=== PATIENT | male | born 1965 | race Caucasian/White ===

== ENCOUNTER → 2019-04-28 16:38 | Outpatient (CLI) | payer OTHER, SELFPAY ==
--- NOTE | ~2019-04-28 | MR_ITS ---
EXAMINATION: MR shoulder LT wo con DATE: 04/28/2019 17:45 INDICATION: Left shoulder pain. TECHNIQUE: Magnetic resonance imaging (MRI) of the left shoulder was performed without intravenous co ntrast. Sequences included axial PD-weighted FS FSE, coronal oblique PD-weighted FS FSE and T2-weight ed FS FSE, and sagittal oblique T2-weighted FS FSE and T1-weighted FSE. COMPARISON: Left shoulder MRI 10/24/2008, radiographs 04/14/2019 FINDINGS: Coracoacromial arch: The acromion undersurface is curved in morphology (type II). There is severe acromioclavicular joint osteoarthritis including inferiorly directed osteophytes. There is mild subacromial/subdeltoid bursit is. Rotator cuff: There is a full-thickness tear of supraspinatus tendon measuring 3 mm anterior to posterior by 2.0 cm proximal to distal. There is mild infraspinatus tendinopathy. Teres minor tendon is normal. There is moderate subscapularis tendinopathy. There is no asymmetric fatty atrophy of the rotator cuff muscle bellies. Biceps tendon and glenoid labrum: Biceps tendon is in bicipital groove. There is a partial tear of biceps tendon. There is a tear of gonzalez perior labrum from 11:00 to 12:00 (SLAP tear). Fluid: There is a small glenohumeral joint effusion. Bones/cartilage: Humeral head cartilage is normal. Glenoid cartilage is normal. IMPRESSION: 1. Full-thickness rotator cuff tear. 2. SLAP tear. 3. Partial tear of biceps tendon. 4. Severe acromioclavicular joint osteoarthritis. 5. Mild subacromial/subdeltoid bursitis and small glenohumeral joint effusion. Reviewed, dictated and finalized at location A. TOR IN CHARGE
== END ==
PROVIDERS: Visit Provider Orthopaedic Surgery
DX: S43.432A Superior glenoid labrum lesion of left shoulder, initial encounter (principal); X58.XXXA Exposure to other specified factors, initial encounter; M19.012 Primary osteoarthritis, left shoulder; M75.52 Bursitis of left shoulder
CPT/HCPCS: 73221

== ENCOUNTER 2020-11-10 14:33 | Emergency (ER) | payer OTHER, SELFPAY ==
--- NOTE | ~2020-11-10 | XR_ITS ---
XR shoulder RT min 2V DATE: 11/10/2020 15:01 INDICATION: Chronic right shoulder pain. No new injury. TECHNIQUE: 4 views COMPARISON: None FINDINGS: No fracture or dislocation, periosteal reaction or bone destruction or abnormal soft tissue calcification. There is diffuse idiopathic skeletal hyperostosis. IMPRESSION: Diffuse idiopathic skeletal hyperostosis Reviewed, dictated and finalized at location A.
--- NOTE | 2020-11-10 14:42 | ED.UPPEXIN ---
HPI - Extremity Injury (Upper) General Chief Complaint: Extremity Problem,Nontraumatic Stated Complaint: rt shoulder pain Time Seen by Provider: 11/10/20 14:42 Source: patient and RN notes reviewed History of Present Illness HPI narrative: Patient is a 55-year-old male who presents the urgent care with complaints of chronic right shoulder pain. Patient states he has spoke to his provider about the chronic pain and was told he likely has arthritis . Patient states that over the last week it is gotten worse especially with any type of movement or lifting. Patient has been taking ibuprofen for the pain. Denies of any injury or fall. No other acute complaints. No acute distress noted. Patient aware of the plan of care. Some parts of this dictation were generated by voice recognition software and may contain typographical and/or grammatical inaccuracies. Related Data Home Medications Medication Instructions Recorded Confirmed aspirin 81 mg tablet,delayed 81 mg PO DAILY 03/04/19 11/10/20 release sildenafil 100 mg tablet 100 mg PO DAILY PRN 03/04/19 11/10/20 multivitamin 1 tablet PO DAILY 04/15/19 11/10/20 Allergies Allergy/AdvReac Type Severity Reaction Status Date / Time No Known Allergies Allergy Verified 11/10/20 14:50 Review of Systems Review of Systems: CONSTITUTIONAL: Denies fever, chills, or sweats. EYES: Denies visual changes, redness, or discharge. ENT: Denies rhinorrhea, congestion, sore throat, or otalgia. CARDIOVASCULAR: Denies chest pain, palpitations, or edema. RESPIRATORY: Denies cough or dyspnea. GASTROINTESTINAL: Denies abdominal pain, nausea, vomiting, or diarrhea. GENITOURINARY: Denies dysuria or hematuria. SKIN: Denies rash or itching. MUSCULOSKELETAL: Reports of right shoulder pain NEUROLOGIC: Denies headache, numbness, or weakness. All other systems reviewed are negative, except as documented in HPI. [facility] Past Medical History Medical History (Updated 11/10/20 @ 15:28 by ROSARIO Phillips) Dizziness Headache Vertigo Vision abnormalities Family History Family History Father Diabetes mellitus Grandparent Diabetes mellitus Mother Hypertension Family history of malignant neoplasm of brain Sibling Hypertension Other Heart disease Social History Social History Smoking status: Never smoker Alcohol intake: current Alcohol use details: Occasional Comments At the time of my signature, I reviewed and agree with the nursing past medical, surgical, social, and family history. There is no relevant family history pertinent to the patient complaint. Exam Narrative: GENERAL: This is a well-nourished, well-developed patient, in no apparent distress. HEAD: normocephalic, atraumatic. EYES: PERRL. Sclera clear/white. Vision is grossly intact. EARS: External ears normal NOSE: External nose normal with no obvious nasal discharge, nares without redness, no rhinorrhea. THROAT: Mucous membranes moist NECK: Neck supple CARDIOVASCULAR: Regular rate and rhythm without murmurs, gallops, or rubs. RESPIRATORY: Clear to auscultation. Breath sounds equal bilaterally. No wheezes, rales, or rhonchi. SKIN: warm, intact with no suspicious lesions or rash, good texture and turgor. NEURO: awake, alert, and oriented to person, place and time. There were no obvious focal neurologic abnormalities. EXTREMITIES: Mild lateral right shoulder tenderness with palpation. Range of motion exacerbates pain otherwise within normal limits. Positive strong right radial pulse with capillary refill less than 2 seconds. No obvious deformity to the right shoulder Course Vital Signs Vital signs: Vital Signs Temperature 96.8 F L 11/10/20 14:53 Pulse Rate 80 11/10/20 14:53 Respiratory Rate 16 11/10/20 14:53 Blood Pressure 144/94 H 11/10/20 14:53 Pulse Oximetry 100 11/10/20 14:53
[2020-11-10 14:53] VITALS: BP 144/94; PULSE 80; RESP 16; TEMP 36; O2SAT 100
== END 2020-11-10 15:33 | disposition home or self-care (01) ==
PROVIDERS: Emergency Provider Nurse Practitioner Family; PCP Family Medicine
DX: M48.10 Ankylosing hyperostosis [Forestier], site unspecified (principal)
CPT/HCPCS: 73030; 99213; G0463

== ENCOUNTER → 2021-03-19 07:59 | Outpatient (CLI) | payer OTHER, SELFPAY ==
--- NOTE | ~2021-03-19 | MR_ITS ---
EXAMINATION: MR shoulder RT wo con DATE: 03/19/2021 08:57 INDICATION: Right shoulder pain. TECHNIQUE: Magnetic resonance imaging (MRI) of the right shoulder was performed without intravenous c ontrast. Sequences included axial PD-weighted FS FSE, coronal oblique PD-weighted FS FSE and T2-weigh yoselin FS FSE, and sagittal oblique T2-weighted FS FSE and T1-weighted FSE. COMPARISON: Right shoulder radiographs 11/10/2020 FINDINGS: Coracoacromial arch: The acromion undersurface is curved in morphology with anterior hook (type III). There is severe acro mioclavicular joint osteoarthritis. There is moderate subacromial/subdeltoid bursitis. Rotator cuff: There is severe supraspinatus tendinopathy. There is a bursal sided partial-thickness tear of anterio r supraspinatus tendon measuring 9 mm anterior to posterior by 8 mm proximal to distal by 70% tendon thickness. There is a partial tear of the myotendinous junction of supraspinatus with 1.3 x 0.9 x 3.1 cm fluid collection. There is mild infraspinatus tendinopathy. Teres minor tendon is normal. There i s subscapularis tendinopathy with interstitial tear. There is mild fatty atrophy of subscapularis mus magdiel belly. Biceps tendon and glenoid labrum: Biceps tendon is in bicipital groove. Intra-articular biceps tendon is intact. There is degeneration of the glenoid labrum without well-defined tear. Fluid: There is no glenohumeral joint effusion. Bones/cartilage: There is cartilage surface irregularity of glenoid and humeral head. IMPRESSION: 1. Bursal-sided partial-thickness tear of supraspinatus tendon. Partial tear of supraspinatus myotend inous junction. 2. Interstitial tear of subscapularis tendon. 3. Mild glenohumeral joint chondrosis. 4. Severe acromioclavicular joint osteoarthritis. 5. Moderate subacromial/subdeltoid bursitis. Reviewed, dictated and finalized at location A. DDED CASE MANAGER IMPRESSION: 1. Bursal-sided partial-thickness tear of supraspinatus tendon. Partial tear of supraspinatus myotendinous junction. 2. Interstitial tear of subscapularis tendon. 3. Mild glenohumeral joint chondrosis. 4. Severe acromioclavicular joint osteoarthritis. 5. Moderate subacromial/subdeltoid bursitis.
== END ==
PROVIDERS: PCP Family Medicine; Visit Provider Orthopaedic Surgery
DX: M19.011 Primary osteoarthritis, right shoulder (principal); M75.51 Bursitis of right shoulder
CPT/HCPCS: 73221

== ENCOUNTER 2021-05-10 11:17 | Outpatient (CLI) | payer OTHER, SELFPAY ==
--- NOTE | 2021-05-10 14:48 | ECG_ITS ---
Measurements Intervals [place] Rate: 78 P: 62 IN: 203 QRS: 50 QRSD: 104 T: 44 QT: 377 QTc: 429 Interpretive Statements SINUS RHYTHM POOR R-WAVE PROGRESSION OTHERWISE UNREMARKABLE ECG NO PREVIOUS ECG AVAILABLE FOR COMPARISON Electronically Signed On 05-10-2021 16:21:32 CDT by Jackson Ferguson M.D.
== END 2021-05-10 11:18 | disposition home or self-care (01) ==
PROVIDERS: PCP Family Medicine; Visit Provider Orthopaedic Surgery
DX: E11.65 Type 2 diabetes mellitus with hyperglycemia (principal)
CPT/HCPCS: 93005

== ENCOUNTER 2021-05-15 00:11 | Day surgery (SDC) | payer OTHER, SELFPAY ==
[2021-05-06 11:43] VITALS: BMI 27.9
--- NOTE | 2021-05-06 11:51 | PC.NURSE ---
Report to the Outpatient Waiting Room, entrance under the green pavilion located off [facility], at time 11:30 on date 05/15/21. OR Time: 1:30. - You and your visitor will be asked a series of questions to screen for COVID 19 for your protection. - A mask is required within the hospital. One visitor will be allowed to accompany the patient into the hospital. Patients visitor will be instructed to remain with patient at all times or leave the building. We will allow the visitor to come back to the postoperative area when patient is ready. Preoperative COVID Testing Requirements: TO BRING COPY OF CARD No COVID Test needed if: (proof is required; if not received patient will have Rapid Test prior to entry) - Patient has received COVID Vaccine at least 14 days prior to procedure date or - Patient has positive COVID test result within last 90 days of surgery date. COVID Test needed if above criteria is not met Patients may have clear liquids (water, carbonated beverages, clear teas, apple juice) until 3 hours prior to surgery (10:30) with a maximum of 20 ounces. - No food from midnight until time of surgery Take the following medications with a SIP of water the morning of surgery: NONE Medications to discontinue per physician: VITAMINS/SUPPLEMENTS Date to take last dose: 05/11/21 STOP ASPIRIN AND DICLOFENAC PER DR. FELIX Please no make-up, nail lao, hairspray, perfume, deodorant, or body powder the day of surgery. No jewelry (including any body piercings) or valuables the day of surgery, leave them at home. Please take a shower or bath the night before, or the morning of, surgery with an antibacterial soap. Wear comfortable, loose fitting clothing. - Jewelry must be removed prior to entering the operating room. Rings and piercings that are not removed may be cut off. - The hospital will not accept responsibility for valuables. - Please leave all valuables, including medications, at home the day of surgery. If you are going home after surgery, a licensed milk delivery driver must drive you home. - NO public transportation without another adult. - We recommend that an adult stay with you for 24 hours following discharge. - We also recommend that you do not drive, make important decision, drink alcoholic beverages, or take any drugs that were not prescribed by your health care provider for at least 24 hours after your discharge time. Follow any additional instructions given to you from your surgeon. Telephone instructions given to JOSEFINA GRADY and asked if any additional questions and then verbalized understanding. Patient advised to call surgeon office or pre surgery nurse liaison [phone] if any additional questions.
--- NOTE | 2021-05-14 09:23 | WPDANESEPPF ---
Anes - Initial Pre Proc Eval Procedure: Operation Date: 05/15/21 13:30 Proposed Procedures p Right Rotator Cuff Repair with Distal Clavicle Excision - Reginald Claudio MD Date/Time: 05/14/21 09:23 Surgeon: Reginald Claudio MD Pre Op Diagnosis: Rt Rot Cuff Tear Patient Data Age: 56 Gender: M Height: 1.78 m Weight: 88.45 kg Allergies Allergy/AdvReac Type Severity Reaction Status Date / Time No Known Allergies Allergy Verified 05/15/21 11:48 Home Medications Medication Instructions Recorded Confirmed Type aspirin 81 mg tablet,delayed 81 mg PO DAILY 03/04/19 05/15/21 History release sildenafil 100 mg tablet 100 mg PO DAILY PRN 03/04/19 05/15/21 History multivitamin 1 tablet PO DAILY 04/15/19 05/15/21 History lisinopril 5 mg tablet See Rx Instructions .ROUTE 05/23/20 05/15/21 Rx .COMPLEX #90 tablet empagliflozin 10 mg tablet See Rx Instructions .ROUTE 08/22/20 05/15/21 Rx .COMPLEX #90 tablet pen needle, diabetic 32 gauge x See Rx Instructions .ROUTE 08/24/20 03/25/21 Rx 1/5 .COMPLEX #100 syringe metformin 1,000 mg tablet See Rx Instructions .ROUTE 09/18/20 05/15/21 Rx .COMPLEX #180 tablet blood sugar diagnostic #200 each 10/04/20 03/25/21 Rx simvastatin 10 mg tablet See Rx Instructions .ROUTE 11/05/20 05/15/21 Rx .COMPLEX #90 tablet diclofenac sodium 75 mg 75 mg PO BID #180 tablet 12/31/20 05/15/21 Rx tablet,delayed release liraglutide 0.6 mg/0.1 mL (18 mg/3 See Rx Instructions .ROUTE 02/05/21 05/15/21 Rx mL) subcutaneous pen injector .COMPLEX #9 ml Patient hx anesthesia problems: none Family hx anesthesia problems: none Results Review: All pre-operative results and documents have been reviewed as part of the pre-operative evaluation. [facility] Past Medical History Medical History DISH (diffuse idiopathic skeletal hyperostosis) Dizziness Headache Hyperlipidemia Hypertension Type 2 diabetes mellitus with hyperglycemia Vertigo Vision abnormalities Family History Family History Father Diabetes mellitus Grandparent Diabetes mellitus Mother Hypertension Family history of malignant neoplasm of brain Sibling Hypertension Other Heart disease Social History Social History Alcohol intake: current Alcohol use details: 2/MONTH Substance use: never Substance use type: does not use Living arrangements: with family Gender identity (if verbalized by the patient): Male Spiritual care concerns: No Anes - Eval Final PreProcedure Day of Procedure 05/14/21 09:23 Patient weight: overweight Heart: regular rate and rhythm Lungs: clear to auscultation and normal air movement Airway: Mallampati scale class II Neurological: alert and oriented Last oral intake: >/= 8 hours ASA classification: III Emergent: no Anesthetic plan: proceed Anesthesia type and monitoring: general ETT and standard monitoring Results Review: All pre-operative results and documents have been reviewed as part of the pre-operative evaluation. Informed Consent: The patient's anesthetic plan and its attendant risks and benefits were discussed with the patient/family/POA. Questions were solicited and answers provided to the satisfaction of the patient/family/POA.
--- NOTE | 2021-05-14 09:24 | WPDANESPNB ---
Anes - Peripheral Nerve Block Date/Time: 05/14/21 09:24 I have discussed with the patient/family/POA the placement of a peripheral nerve block for post-operative pain management, including associated risks, benefits, complications, and side effects. Alternative methods of post-operative analgesia were detailed. Questions were solicited and answers provided to the satisfaction of the patient/family/POA. Time-Out: A pre-procedural Time-Out was completed immediately before starting the procedure and confirmed: Patient Identification, Site, Procedure, Patient Position and the Availability of Requisite Equipment. Clinical Indications: Acute post-operative pain management requested by the operative surgeon. Nerve Block Insertion Note Anes-nerve block: interscalene right Patient position: supine Skin prep: chlorhexidine Needle: 22 gauge, stimulating, insulated echogenic needle. Needle length: 50 mm Technique: ultrasound Injectate: bupivacaine 0.5% with epi 5 mcg/ml (30cc- no epi) Observations: tolerated well Complications: none Procedure start time:: 1407 Procedure end time:: 1411
[2021-05-15] VITALS (7 sets, daily range): BP systolic 124–142; BP diastolic 63–74; PULSE 72–85; RESP 12–16; TEMP 36.1–36.4; O2SAT 97–100
--- NOTE | 2021-05-15 07:35 | WPDHPUPDATE1 ---
History and Physical Update Update Date/Time: 05/15/21 07:35 History and Physical has been reviewed, including an updated exam of the patient. There are NO changes in the patient's condition. Risks, benefits, and alternatives have been discussed and questions answered. Patient agrees to proceed with procedure.
--- NOTE | 2021-05-15 10:21 | PM.IMHP ---
H&P: HPI History of Present Illness Date/Time: 05/15/21 10:21 Pt presents with Right shoulder pain that has been present for >1year. NKI. Pt states his pain is located diffusely, throughout the shoulder, and radiates into the deltoid/bicep. He notes clicking/popping, with ROM. ROM is good but painful. He also notes occasional numbness in the right hand but this is not typical. He saw his PCP 10/2020 and was ordered Diclofenac tablets and also a Medrol Dose Pack. Pt states the steroid completely resolved his pain but he was not able to continue steroid treatment (per PCP) d/t having Diabetes. No previous injuries/surgeries to the RUE. MRI completed 03/19/21. Pt is here to discuss results and poc. Dominant hand: right Current symptoms: Reports catching, stiffness, weakness and radiation Location: anterior, posterior, medial and superior Character: constant Onset: >1 year Exacerbated by: lifting, rotational activities, prolonged activity, reaching/overhead motion and lying on affected side Previous treatments: Anti-inflammatory meds: right (Diclofenac), Ice: right and Other: right (Medrol) Improved by treatment/surgery: yes (Medrol dose pack) Chief Complaint: RIGHT SHOULDER PAIN Review of Systems Review of Systems: All systems reviewed & are unremarkable except as noted in HPI and below Eyes: Eyes: Reports no additional eye complaints ENT: Reports system reviewed and no additional complaints, except as documented Cardiovascular: Cardiovascular: Reports no additional cardiovascular complaints Respiratory: Respiratory: Reports no additional respiratory complaints Gastrointestinal: Gastrointestinal: Reports no additional gastrointestinal complaints Genitourinary: Genitourinary: Reports no additional male genitourinary complaints Neurologic: Reports system reviewed and no additional complaints, except as documented [facility] Past Medical History Medical History DISH (diffuse idiopathic skeletal hyperostosis) Dizziness Headache Hyperlipidemia Hypertension Type 2 diabetes mellitus with hyperglycemia Vertigo Vision abnormalities Family History Family History Father Diabetes mellitus Grandparent Diabetes mellitus Mother Hypertension Family history of malignant neoplasm of brain Sibling Hypertension Other Heart disease Social History Social History Alcohol intake: current Alcohol use details: 2/MONTH Substance use: never Substance use type: does not use Living arrangements: with family Gender identity (if verbalized by the patient): Male Spiritual care concerns: No Meds Home Medications and Allergies Home Medications Medication Instructions Recorded Confirmed Type aspirin 81 mg tablet,delayed 81 mg PO DAILY 03/04/19 05/06/21 History release sildenafil 100 mg tablet 100 mg PO DAILY PRN 03/04/19 05/06/21 History multivitamin 1 tablet PO DAILY 04/15/19 05/06/21 History lisinopril 5 mg tablet See Rx Instructions .ROUTE 05/23/20 05/06/21 Rx .COMPLEX #90 tablet empagliflozin 10 mg tablet See Rx Instructions .ROUTE 08/22/20 05/06/21 Rx .COMPLEX #90 tablet pen needle, diabetic 32 gauge x See Rx Instructions .ROUTE 08/24/20 03/25/21 Rx 1/5 .COMPLEX #100 syringe metformin 1,000 mg tablet See Rx Instructions .ROUTE 09/18/20 05/06/21 Rx .COMPLEX #180 tablet blood sugar diagnostic #200 each 10/04/20 03/25/21 Rx simvastatin 10 mg tablet See Rx Instructions .ROUTE 11/05/20 05/06/21 Rx .COMPLEX #90 tablet diclofenac sodium 75 mg 75 mg PO BID #180 tablet 12/31/20 05/06/21 Rx tablet,delayed release liraglutide 0.6 mg/0.1 mL (18 mg/3 See Rx Instructions .ROUTE 02/05/21 05/06/21 Rx mL) subcutaneous pen injector .COMPLEX #9 ml Allergies Allergy/AdvReac Type Severity Reaction Status Date / Time No Known Allergies Allergy
[2021-05-15] MEDS: ACETAMINOPHEN 500 MG TABLET 1000 MG PO (11:52)
[2021-05-15] MEDS: CELECOXIB 200 MG CAPSULE PO (11:52)
[2021-05-15] MEDS: LACTATED RINGERS 1,000 ML 30 ML IV CONT ×2 (12:07→15:31)
[2021-05-15 12:08] LABS: Glucose Point of Care 152 mg/dl (65-105)
--- NOTE | 2021-05-15 14:46 | WPDHPUPDATE1 ---
History and Physical Update Update Date/Time: 05/15/21 14:46 History and Physical has been reviewed, including an updated exam of the patient. There are NO changes in the patient's condition. Risks, benefits, and alternatives have been discussed and questions answered. Patient agrees to proceed with procedure. WE ALSO DISCUSSED THE NEED FOR A DISTAL CLAVICLE RESECTION AND LIMITED SUBACROMIAL DECOMPRESSION DUE TO HIS SEVERE DJD AND A TYPE 3 ACROMION. HE WOULD LIKE TO PROCEED.
[2021-05-15] MEDS: ceFAZolin 2 GM/D5W 50 ML 2 GM/50 ML BAG IVPB (14:57)
--- NOTE | 2021-05-15 16:39 | W.PM.PROC2 ---
Procedure Note - Detailed Date of Procedure 05/15/21 Pre-op Diagnosis Rt Rot Cuff Tear, AC Joint DJD Post-op Diagnosis Same Procedure Performed REPAIR RIGHT ROTATOR CUFF Surgeon Reginald Claudio MD Anesthesia General Description of Procedure THE PATIENT WAS TAKEN TO THE OPERATING ROOM AND THEN INTUBATED AND PLACED IN THE BEACH CHAIR POSITION. THE RIGHT UPPER EXTREMITY WAS PREPPED AND DRAPED IN THE NORMAL STERILE FASHION. AN INCISION WAS MADE IN BETWEEN THE TWILA-LATERAL ACROMION AND THE AC JOINT. THE FASCIA WAS IDENTIFIED. THE AC JOINT WAS IDENTIFIED AND INCISED. THERE WAS SEVERE DJD. A DISTAL CLAVICLE EXCISION WAS MADE REMOVING 1 CM OF BONE FROM THE DISTAL CLAVICLE. THE WOUND WAS WASHED AND THE CAPSULE REPAIRED WITH O VICRYL. NEXT A MINI OPEN INCISION WAS MADE THROUGH THE DELTOID MUSCLE EXPOSING THE SUBACROMIAL SPACE. A LIMITED ACROMIOPLASTY WAS PREFORMED. THE ROTATOR CUFF WAS IDENTIFIED. THERE WAS A FULL THICKNESS TEAR. IT MEASURED APPROXIMATELY 1 CM X 1 CM. THE GREATER TUBEROSITY WAS DEBRIDED TO BLEEDING BONE. 1 ARTHREX 5.5 SUTURE ANCHOR WAS PLACED IN TO GOOD BONE AND HAD VERY A GOOD BITE. A SOTERO-ALISON TYPE REPAIR WAS DONE TO THE ROTATOR CUFF AND THERE WAS GOOD APPROXIMATION TO THE GREATER TUBEROSITY. THE REPAIR WAS EXCELLENT. THERE WAS NO IMPINGEMENT ON THE REPAIR FROM THE ACROMION WITH RANGE OF MOTION. THE WOUND WAS IRRIGATED WITH COPIOUS AMOUNTS OF ANTIBIOTIC SOLUTION. THE DELTOID MUSCLE WAS REPAIRED WITH #2 FIBER WIRE AND 0 VICRYL SUTURE. THE SUBCUTANEOUS LAYER WAS APPROXIMATED WITH 2-0 VICRYL. THE SKIN WAS APPROXIMATED WITH 3-0 QUIL AND DERMABOND. STERILE DRESSING WAS APPLIED. PATIENT WAS EXTUBATED. Estimated Blood Loss 20 Complications No immediate complications Condition Stable Disposition PACU
[2021-05-15 17:02] LABS: Glucose Point of Care 123 mg/dl (65-105)
--- NOTE | 2021-05-15 17:02 | SUR.PHASEI ---
1701: Simple mask removed.
== END 2021-05-15 18:20 | disposition home or self-care (01) ==
PROVIDERS: PCP Family Medicine; Visit Provider Orthopaedic Surgery
PROC: (CPT 23420; principal; 2021-05-15 13:30)
DX: M75.101 Unspecified rotator cuff tear or rupture of right shoulder, not specified as traumatic (principal); M19.011 Primary osteoarthritis, right shoulder; G89.18 Other acute postprocedural pain; I10 Essential (primary) hypertension; E78.5 Hyperlipidemia, unspecified; E11.9 Type 2 diabetes mellitus without complications; M48.10 Ankylosing hyperostosis [Forestier], site unspecified; Z79.84 Long term (current) use of oral hypoglycemic drugs; Z79.82 Long term (current) use of aspirin; Z79.899 Other long term (current) drug therapy
CPT/HCPCS: 23412; 23120; 64415; 82948; A4565; A9270; C1713; J0690; J1100; J2250; J2270; J2405; J2704; J2710; J3010; J7120

== ENCOUNTER → 2022-12-11 15:45 | Outpatient (CLI) | payer OTHER, SELFPAY ==
--- NOTE | ~2022-12-11 | XR_ITS ---
XR hip RT 2V w AP pelvis DATE: 12/11/2022 16:00 INDICATION: Right hip pain. No injury. TECHNIQUE: AP pelvis. AP and lateral views of the right hip COMPARISON: None FINDINGS: Moderately severe right hip osteoarthritis and moderate left hip osteoarthritic arthritis. There are no fracture or dislocation, avascular necrosis or bone destruction of the right hip is dete cted. No pelvic fracture or bone destruction. Normal alignment at the pubic symphysis and sacroiliac joints . IMPRESSION: Bilateral hip osteoarthritis, right greater than left Reviewed, dictated and finalized at location L.
== END ==
PROVIDERS: PCP Family Medicine; Visit Provider Family Medicine
DX: M16.0 Bilateral primary osteoarthritis of hip (principal)
CPT/HCPCS: 73502

== ENCOUNTER 2023-12-18 15:11 | Outpatient (CLI) | payer OTHER, SELFPAY ==
--- NOTE | ~2023-12-18 | XR_ITS ---
XR hip RT 2V w AP pelvis Ordering provider: Yobani Barrera MD History: . No injury right hip pain for 2 years . Comparison: December 11, 2022 FINDINGS: BONES: No acute fracture or dislocation. HIP JOINT SPACES: Bilateral hand severe osteoarthritic changes. SACROILIAC JOINT SPACES/LUMBAR SPINE: The sacroiliac joint spaces are normal. Mild degenerative rivero es of the visualized lower lumbar spine. PUBIC SYMPHYSIS: Normal. SOFT TISSUES: Normal. IMPRESSION: No acute osseous abnormality pelvis and right hip. Reviewed, dictated and finalized at location A.
== END 2023-12-18 15:12 | disposition home or self-care (01) ==
LOC: GOSHIMG 15:11
PROVIDERS: PCP Orthopaedic Surgery; Visit Provider Orthopaedic Surgery
DX: M25.551 Pain in right hip (principal)
CPT/HCPCS: 73502

== ENCOUNTER 2024-01-05 15:38 | Outpatient (CLI) | payer OTHER, SELFPAY ==
--- NOTE | ~2024-01-05 | XR_ITS ---
HISTORY: M18.10 - Unilateral primary osteoarthritis of first carpo... COMPARISON: None TECHNIQUE: 3 views of the right hand were performed. FINDINGS: No acute fracture is identified. The joint spaces are markedly narrowed The carpal arcs are carotid and disorganized with multiple lucencies consistent with severe osteoarth ritis. Radiocarpal joint space narrowing with sclerosis of the distal radius. Bone mineralization is abnormal for a patient of this age. A lacelike appearance of the proximal and middle phalanx of all digits are identified. No significant soft tissue swelling. No radiopaque foreign body is identified. Severe degenerative disease is identified within the first carpometacarpal joint space with joint spa ce narrowing, bony erosion and osteophyte formation. IMPRESSION: No acute fracture or dislocation within the right hand, as detailed above. Severe degenerative disease within the first carpometacarpal joint space. Lacelike appearance of the bone mineralization can be seen with such conditions as hyperparathyroidis m and sarcoidosis, for which clinical correlation is needed. The periarticular osteopenia is most consistent with osteoarthritis, as are the findings at the first carpometacarpal joint space. Reviewed, dictated and finalized at location A. F DEPUTY IMPRESSION: No acute fracture or dislocation within the right hand, as detailed above. Severe degenerative disease within the first carpometacarpal joint space. Lacelike appearance of the bone mineralization can be seen with such conditions as hyperparathyroidism and sarcoidosis, for which clinical correlation is need ed. The periarticular osteopenia is most consistent with osteoarthritis, as are the findings at the first carpometacarpal joint space.
== END 2024-01-05 15:39 | disposition home or self-care (01) ==
PROVIDERS: PCP Family Medicine; Visit Provider Physician Assistant Surgical
DX: M81.0 Age-related osteoporosis without current pathological fracture (principal); M18.11 Unilateral primary osteoarthritis of first carpometacarpal joint, right hand; M85.841 Other specified disorders of bone density and structure, right hand
CPT/HCPCS: 73130

== ENCOUNTER 2024-01-30 11:25 | Outpatient (CLI) | payer OTHER, SELFPAY ==
--- NOTE | 2024-01-30 11:36 | ECG_ITS ---
Test Date: 2024-01-30 11:47:04 Measurements Intervals [place] Rate: 71 P: 52 AK: 210 QRS: 50 QRSD: 102 T: 47 QT: 397 QTc: 433 Interpretive Statements SINUS RHYTHM WITH FIRST DEGREE AV BLOCK No previous ECG available for comparison Electronically Signed On 01-30-2024 14:45:42 RETREAD TECHNICIAN by Jasen Krueger M.D.
== END 2024-01-30 11:26 | disposition home or self-care (01) ==
LOC: ANHCARD 11:27
PROVIDERS: PCP Family Medicine; Visit Provider Orthopaedic Surgery
DX: M16.11 Unilateral primary osteoarthritis, right hip (principal); I44.0 Atrioventricular block, first degree
CPT/HCPCS: 93005

== ENCOUNTER 2024-03-23 07:46 | Outpatient (CLI) | payer OTHER, SELFPAY ==
[2024-03-23 10:15] LABS: Basophils Absolute Auto 0.1 K/mm3 (0.0-0.1); Basophils Percent Auto 1.4 % (0.2-1.2); Eosinophils Absolute Auto 0.2 K/mm3 (0-0.3); Eosinophils Percent Auto 4.3 % (0-4.4); Hematocrit 42.7 % (42.0-52.0); Hemoglobin 13.3 g/dL (14.0-18.0); Immature Granulocyte Absolute 0.01 K/mm3 (0.00-0.031); Immature Granulocyte Percent A 0.2 % (0-0.5); Lymphocytes Absolute Auto 1.12 K/mm3 (0.9-3.2); Lymphocytes Percent Auto 22.8 % (18.3-44.2); Mean Corpuscular HGB Conc 31.1 g/dl (32-36); Mean Corpuscular Hemoglobin 25.6 pg (26-34); Mean Corpuscular Volume 82.1 fl (80-100); Mean Platelet Volume 10.5 fl (7.4-10.4); Monocytes Absolute Auto 0.5 K/mm3 (0.1-0.6); Neutrophils Percent Auto 61.3 % (45.5-73.1); Platelet Count Result 230 k/mm3 (150-375); Red Cell Distribution Width 17.8 % (11.5-14.5); White Blood Count 4.9 K/mm3 (4.5-10.0)
[2024-03-23 10:32] LABS: Albumin Level 4.1 g/dL (3.5-5.1)
[2024-03-23 10:35] LABS: Anion Gap 7 mmol/L (4-12); Blood Urea Nitrogen 16 mg/dL (9-20); Calcium 9.4 mg/dL (8.4-10.2); Carbon Dioxide 25 mmol/L (22-30); Chloride 105 mmol/L (98-107); Estimated Glomerular Filt Rate > 60; Glucose 113 mg/dL (65-110); Potassium 4.3 mmol/L (3.4-5.0); Sodium 137 mmol/L (137-145)
[2024-03-23 11:25] LABS: Hemoglobin A1C 6.9 % (<5.7)
[2024-03-23 11:29] LABS: MRSA (PCR) NOT DETECTED (NOT DETECTE)
[2024-03-23 14:56] LABS: Urine Cotinine NEGATIVE
== END 2024-03-23 07:47 | disposition home or self-care (01) ==
LOC: ANHSURGERY 07:51
PROVIDERS: Anesthesiology; PCP Family Medicine; Visit Provider Orthopaedic Surgery
DX: Z01.818 Encounter for other preprocedural examination (principal); M16.11 Unilateral primary osteoarthritis, right hip; E11.65 Type 2 diabetes mellitus with hyperglycemia
CPT/HCPCS: 36415; 80048; 80307; 82040; 83036; 85025; 87641

== ENCOUNTER 2024-04-21 02:21 | Day surgery (SDC) | payer OTHER, SELFPAY ==
[2024-03-23 08:11] VITALS: BP 148/77; PULSE 81; RESP 16; TEMP 36.8; O2SAT 100; BMI 30.3
--- NOTE | 2024-03-23 08:29 | PC.NURSE ---
Report to the Outpatient Waiting Room, entrance under the green pavilion located off [facility], at time ___8:00AM____ on date ___04/21/24____. Planned Procedure Time: __10:00AM .? Time changes happen often and if your time is changed the preop area will call you the afternoon before. - You and your visitor will be asked to self-screen and do not enter if you have any COVID symptoms. Please call surgeon if you need to reschedule. - A mask is optional within the hospital at this time. Patients may have clear liquids (water, carbonated beverages, clear teas, apple juice) until 3 hours prior to surgery (7:00AM) with a maximum of 20 ounces. - No food from midnight until time of surgery and no smoking. This includes no chewing gum, candy or mints. Take only the following medications with a SIP of water on the morning of surgery: NONE DO NOT STOP ANY OF YOUR OTHER PRESCRIPTION MEDICATIONS PRIOR TO SURGERY EXCEPT THE FOLLOWING Medications to discontinue per physician ____HOLD ASPIRIN & ALL NSAIDS (ADVIL, VOLTAREN) 7 DAY PRE- OP PER DR LINARES- LAST DOSE 04/13/24 HOLD ALL VITAMINS/SUPPLEMENTS 3 DAYS PRE-OP PER ANESTHESIA- LAST DOSE 04/17/24. Please no make-up, nail kazakh, hairspray, perfume, deodorant, or body powder the day of surgery.? No jewelry (including any body piercings) or valuables the day of surgery, leave them at home.? Please take a shower or bath the night before, or the morning of, surgery with an antibacterial soap.? Wear comfortable, loose fitting clothing.? - Jewelry must be removed prior to entering the operating room.? Rings and piercings that are not removed may be cut off. - The hospital will not accept responsibility for valuables.? - Please leave all valuables, including medications, at home the day of surgery. If you are going home after surgery, a licensed route delivery driver must drive you home.? - NO public transportation without another adult if you receive anesthesia. - We recommend that an adult stay with you for 24 hours following discharge. - We also recommend that you do not drive, make important decision, drink alcoholic beverages, or take any drugs that were not prescribed by your health care provider for at least 24 hours after your discharge time. Hold all vitamins and supplements for 3 days per anesthesiologist. Follow any additional instructions given to you from your surgeon. Telephone instructions given to ____PATIENT & WIFE and asked if any additional questions and then verbalized understanding. Patient advised to call surgeon office or pre surgery nurse liaison [phone] if any additional questions.
[2024-04-21] VITALS (14 sets, daily range): BP systolic 120–156; BP diastolic 63–85; PULSE 73–109; RESP 12–16; TEMP 36.1–37.2; O2SAT 95–100
[2024-04-21] MEDS: LACTATED RINGERS 1,000 ML 30 ML IV CONT ×2 (08:30→13:17)
[2024-04-21 08:42] LABS: Glucose Point of Care 151 mg/dl (65-105)
[2024-04-21] MEDS: ACETAMINOPHEN 500 MG TABLET 1000 MG PO (08:49)
[2024-04-21] MEDS: TRANEXAMIC ACID 1,000MG/ISO100 1,000 MG/100 ML BAG 200 MG IVPB (08:49)
--- NOTE | 2024-04-21 10:02 | WPDANESEPPF ---
Anes - Initial Pre Proc Eval Procedure: Operation Date: 04/21/24 10:00 Proposed Procedures p Right Total Hip Arthroplasty - Yobani Barrera MD Date/Time: 04/21/24 10:02 Surgeon: Yobani Barrera MD Pre Op Diagnosis: primary oa right hip Patient Data Age: 59 Gender: M Height: 1.78 m Weight: 93.2 kg Last Vital Signs Temp 36.3 C L 04/21/24 08:52 Pulse 73 04/21/24 08:52 Resp 16 04/21/24 08:52 BP 156/85 H 04/21/24 08:52 Pulse Ox 100 04/21/24 08:52 O2 Del Method Room Air 04/21/24 08:52 Allergies Allergy/AdvReac Type Severity Reaction Status Date / Time No Known Allergies Allergy Verified 03/23/24 10:13 Home Medications ?Medication ?Instructions ?Recorded ?Confirmed ?Type aspirin 81 mg tablet,delayed 81 mg PO DAILY 03/04/19 04/21/24 History release (Adult Low Dose Aspirin) sildenafil 100 mg tablet (Viagra) 100 mg PO DAILY PRN Erectile 03/04/19 04/21/24 History Dysfunction multivitamin (Daily Multi-Vitamin 1 tablet PO DAILY 04/15/19 04/21/24 History tablet) blood sugar diagnostic #200 ea 10/04/20 03/23/24 Rx pen needle, diabetic 32 gauge x See Rx Instructions .Route 02/25/22 03/23/24 Rx 1/5 .COMPLEX #100 syringes pen needle, diabetic 32 gauge x #100 ea 03/03/22 03/23/24 Rx 5/32 (1st Tier Unifine Pentips) semaglutide 0.25 mg or 0.5 mg (2 0.5 mg (0.736 mL) subcut WEEKLY #9 09/03/23 04/21/24 Rx mg/3 mL) subcutaneous pen injector mL (Ozempic) lisinopril 5 mg tablet See Rx Instructions .Route 09/18/23 04/21/24 Rx .COMPLEX #90 tabs empagliflozin 10 mg tablet See Rx Instructions .Route 11/16/23 04/21/24 Rx (Jardiance) .COMPLEX #90 tabs metformin 1,000 mg tablet See Rx Instructions .Route 03/11/24 04/21/24 Rx .COMPLEX #180 tabs simvastatin 10 mg tablet 10 mg PO DAILY #90 tabs 03/14/24 04/21/24 Rx diclofenac sodium 1 % topical gel 2 g topical QID PRN pain 03/23/24 03/23/24 History (Arthritis Pain (diclofenac)) ibuprofen 200 mg tablet (Advil) 400 mg PO Q6H PRN pain 03/23/24 04/21/24 History gabapentin 300 mg capsule See Rx Instructions .Route 03/28/24 04/21/24 Rx .COMPLEX #90 caps aspirin 81 mg tablet,delayed 81 mg PO BID 14 days #28 tabs 04/21/24 Rx release oxycodone-acetaminophen 5 mg-325 1 - 2 tablet PO Q4-6H PRN pain 7 04/21/24 Rx mg tablet days #30 tabs Laboratory Tests 04/21/24 04/21/24 08:16 08:37 POC Capillary Glucose 151 H mg/dl (65-105) Blood Type O Negative Antibody Screen Negative Patient hx anesthesia problems: none Family hx anesthesia problems: none Results Review: All pre-operative results and documents have been reviewed as part of the pre-operative evaluation. [facility] Past Medical History Medical History Hyperlipidemia Hypertension DISH (diffuse idiopathic skeletal hyperostosis) Vertigo Vision abnormalities Dizziness Headache Type 2 diabetes mellitus with hyperglycemia Family History Family History Father Diabetes mellitus Grandparent Diabetes mellitus Mother Hypertension Family history of malignant neoplasm of brain Sibling Hypertension Other Heart disease Social History Social History Smoking status: Never smoker Alcohol intake: current Alcohol use details: 2/MONTH Substance use: never Substance use type: does not use Do You Feel Safe in your Home?: Yes Lack of Transportation: No Lack of Food: Never True Current Housing: I Have Housing Concerned About Future Housing: No Difficulty Paying Gas/Electric Bills: No Difficulty Paying for Meds: No Currently Unemployed: No Education: High School Diploma/GED Difficulty w/ Childcare or Family Care: No Living arrangements: with family Additional living arrangements comments: Gender identity (if verbalized by the patient): Male Spiritual care concerns: No Anes - Eval Final PreProcedure Day of Procedure 04/21/24 10:02 Patient weight: normal Heart: regular rate and rhythm Lungs: clear to auscultation Airway: Mallampati scale class II Neurological: alert and oriented Last oral intake: >/= 8 hours ASA classification: III Emergent: no Anesthetic plan: proceed Anesthesia type and monitoring: general ETT and standard monitoring Results Review: All pre-operative results and documents have been reviewed as part of the pre-operative evaluation. Informed Consent: The patient's anesthetic plan and its attendant risks and benefits were discussed with the patient/family/POA. Questions were solicited and answers provided to the satisfaction of the patient/family/POA.
--- NOTE | 2024-04-21 10:03 | WPDHPUPDATE1 ---
History and Physical Update Update Date/Time: 04/21/24 10:03 History and Physical has been reviewed, including an updated exam of the patient. There are NO changes in the patient's condition. Risks, benefits, and alternatives have been discussed and questions answered. Patient agrees to proceed with procedure.
[2024-04-21] MEDS: ceFAZolin 2 GM/D5W 50 ML 2 GM/50 ML BAG IVPB ×2 (10:18→17:06)
[2024-04-21] MEDS: SODIUM CHLORIDE 0.9% IV 37.7 ML, MORPHINE SULFATE INJ (*CRX) 2 MG, ROPivacaine HCL 1% 2... INFILTRATE (11:17)
[2024-04-21] MEDS: TRANEXAMIC ACID 1,000 MG/10 ML AMPUL 1000 MG IV PUSH (12:58)
[2024-04-21 13:39] LABS: Glucose Point of Care 201 mg/dl (65-105)
[2024-04-21 13:39] LABS: Glucose Point of Care 225 mg/dl (65-105)
[2024-04-21] MEDS: fentaNYL CITRATE INJ (*CRX) 100 MCG/2 ML VIAL 25 MCG IV PUSH ×7 (13:43→14:23)
--- NOTE | 2024-04-21 13:54 | W.PM.PROC2 ---
Procedure Note - Detailed Date of Procedure 04/21/24 Pre-op Diagnosis Right hip degenerative arthritis. Post-op Diagnosis Same Procedure Performed Right Total Hip Arthroplasty Surgeon Yobani Barrera MD Spray Painter Marilyn Mae PA-C Anesthesia General Findings Direct superior approach. Excellent bone quality. Varus neck anatomy. Description of Procedure The patient was given preoperative antibiotics. A general anesthetic was administered. The patient was carefully placed in the lateral decubitus position on the PEG board. The shoulders and hips were carefully positioned for component and leg length positioning reference. The hip was prepped and draped in the usual sterile fashion. A longitudinal incision was created over the posterior aspect of the greater trochanter. Careful dissection was brought down through the deep fascia with electrocautery. The direct superior approach to the hip was performed. The gluteus melisa fibers were split in line with their fibers. The conjoined tendon of the piriformis and obturator internus was removed from the femur and reflected. The sciatic nerve was protected. The capsulotomy was begun at the femur inferiorly along the neck and carried proximally. The capsule was elevated posteriorly inferior and posterior superior. The hip was dislocated. The femoral neck was cut according to preoperative templating measured from the center of the femoral head. The femoral head was removed. The acetabulum was carefully exposed. The labrum was resected. The acetabulum was sequentially reamed to[ one over] the intended cup size. The cup was impacted into position with good press-fit. 2 supplemental screws were placed. Typical anatomic landmarks, including the bony contact points as well as the inferior transverse acetabular ligament were used to confirm cup positioning with preoperative templating. Attention was turned to the femur, which was carefully exposed. The hip was reamed and then broached sequentially. Excellent press-fit was obtained with the broach. The hip was trialed. X-ray revealed that the neck cut was too proximal and the stem slightly varus. Additional broaching and calcar planing were performed. Measurements were utilized, including the lesser trochanter as well as the center of the femoral head and the tip of the trochanter, and excellent assessment of the offset and leg lengths were confirmed. The real component was impacted into position. Trialing confirmed appropriate leg length and offset with soft tissue balancing as well apparent feel of the leg, both at the knee and the heel. The iliotibial band tension was optimal. The conjoint tendon reduced anatomically. The hip was copiously irrigated with pulsatile lavage periodically throughout the procedure. The real components were then assembled and reduced. The hip was stable throughout typical maneuvers, including extension, external rotation to 70 degrees, the position of sleep as well as flexion to 90 degrees with internal rotation past 35 degrees. The shake test confirmed stability without impingement. The capsule was repaired with a running Ethibond suture. Piriformis and obturator internus tendons were repaired to their origin. The deep fascia was repaired with running number 2 barbed suture, followed by 2-0 Stratafix suture and 3-0 Stratafix suture in the dermis. Steri-Strips were placed on the skin, followed by a sterile occlusive dressing. There were no complications. Meticulous hemostasis was maintained with the AquaMantys device. The patient was brought to the recovery room in stable condition. There were no complications. Physician medical assistant internal medicine, Marilyn Mae PA-C, required for surgery; including patient positioning, draping, tissue retraction, maintaining instrument position, hip dislocation/ relocation, cement removal, wound closure, and dressing placement. Implants The Insignia high offset stem size 4 , was utilized with excellent press-fit. The 52 mm Trident II acetabular component was impacted with excellent press-fit stability. 10 degree elevated polyethylene liner the +0, 36 mm Biolox ceramic femoral head was utilized. Estimated Blood Loss 300 Drains No Packing No Pathology None sent Complications No immediate complications Condition Stable Disposition PACU [facility] Billing Surgery - Charge Forward: Surgery Billing
[2024-04-21] MEDS: oxyCODONE HCL (*CRX) 5 MG TAB IR PO (14:10)
[2024-04-21] MEDS: HYDROmorphone HCL INJ (*CRX) 1 MG/ML SYR 0.25 MG IV PUSH ×4 (14:28→14:43)
[2024-04-21] MEDS: oxyCODONE/ACETAMINOPHEN (*CRX) 5-325 MG TABLET 1 TABLET PO (16:05)
[2024-04-21] MEDS: lisinopriL 5 MG TABLET BY MOUTH (16:05)
[2024-04-21] MEDS: SENNA/DOCUSATE SODIUM TABLET 2 TAB PO (16:07)
[2024-04-21] MEDS: metFORMIN HCL 500 MG TABLET 1000 MG BY MOUTH (16:08)
[2024-04-21] MEDS: SODIUM CHLORIDE 0.9% IV 1,000 ML 125 ML IV CONT (16:08)
[2024-04-21] MEDS: ASPIRIN 81 MG ENTERIC TABLET PO (16:08)
--- NOTE | 2024-04-21 16:32 | ADMGEN ---
This patient, Román Domingo, was admitted to Medical Room 246-01. Patient/family oriented to hospital policies and general routines including ID bracelet, bed and alarms, visiting hours, pain management, procedures, bathroom and other care routines, personal items, smoking policy, room service/diet, and visiting hours. Information on how to activate the Rapid Response Team has been discussed. Patient/Family are encouraged to report perceived risks to care and to ask questions if they do not understand what they are told or what they should do.
[2024-04-21] MEDS: ACETAMINOPHEN 325 MG TABLET 650 MG PO (17:07)
[2024-04-21] MEDS: FAMOTIDINE 20 MG TABLET PO (20:00)
[2024-04-22 00:54] VITALS: BP 123/66; PULSE 99; RESP 16; TEMP 36.8; O2SAT 97
[2024-04-22] MEDS: ceFAZolin 2 GM/D5W 50 ML 2 GM/50 ML BAG IVPB (00:56)
[2024-04-22] MEDS: ACETAMINOPHEN 325 MG TABLET 650 MG PO ×2 (00:56→06:44)
[2024-04-22 04:23] VITALS: BP 138/61; PULSE 94; RESP 16; TEMP 37.2; O2SAT 99
[2024-04-22 05:22] LABS: Basophils Percent Auto 0.3 % (0.2-1.2); Eosinophils Absolute Auto 0.1 K/mm3 (0-0.3); Eosinophils Percent Auto 0.5 % (0-4.4); Hematocrit 39.9 % (42.0-52.0); Hemoglobin 12.4 g/dL (14.0-18.0); Immature Granulocyte Absolute 0.05 K/mm3 (0.00-0.031); Immature Granulocyte Percent A 0.4 % (0-0.5); Lymphocytes Absolute Auto 1.29 K/mm3 (0.9-3.2); Lymphocytes Percent Auto 9.7 % (18.3-44.2); Mean Corpuscular HGB Conc 31.1 g/dl (32-36); Mean Corpuscular Hemoglobin 26.3 pg (26-34); Mean Corpuscular Volume 84.7 fl (80-100); Mean Platelet Volume 10.7 fl (7.4-10.4); Monocytes Absolute Auto 1.2 K/mm3 (0.1-0.6); Monocytes Percent Auto 8.7 % (2.6-8.5); Neutrophils Absolute Auto 10.7 K/mm3 (1.3-6.7); Neutrophils Percent Auto 80.4 % (45.5-73.1); Platelet Count Result 239 k/mm3 (150-375); Red Blood Count 4.71 M/mm3 (4.6-6.20); Red Cell Distribution Width 17.2 % (11.5-14.5); White Blood Count 13.3 K/mm3 (4.5-10.0)
[2024-04-22 05:36] LABS: Anion Gap 9 mmol/L (4-12); Blood Urea Nitrogen 16 mg/dL (9-20); Calcium 8.6 mg/dL (8.4-10.2); Carbon Dioxide 26 mmol/L (22-30); Chloride 101 mmol/L (98-107); Estimated CRCL calculation 83 ml/min; Estimated Glomerular Filt Rate > 60; Glucose 183 mg/dL (65-110); Potassium 3.9 mmol/L (3.4-5.0); Sodium 136 mmol/L (137-145)
[2024-04-22 08:16] VITALS: BP 130/60; PULSE 86; RESP 16; TEMP 36.4; O2SAT 98
[2024-04-22] MEDS: metFORMIN HCL 500 MG TABLET 1000 MG BY MOUTH (08:25)
[2024-04-22] MEDS: GABAPENTIN 300 MG CAPSULE BY MOUTH (08:26)
[2024-04-22] MEDS: MULTIVITAMINS THERAPEUTIC TAB (*BKC) 1 TABLET PO (08:26)
[2024-04-22] MEDS: EMPAGLIFLOZIN 10 MG TABLET BY MOUTH (08:26)
[2024-04-22] MEDS: SENNA/DOCUSATE SODIUM TABLET 2 TAB PO (08:26)
[2024-04-22] MEDS: FAMOTIDINE 20 MG TABLET PO (08:26)
[2024-04-22] MEDS: oxyCODONE/ACETAMINOPHEN (*CRX) 5-325 MG TABLET 1 TABLET PO (08:26)
[2024-04-22] MEDS: SIMVASTATIN 10 MG TABLET PO (08:26)
[2024-04-22] MEDS: ASPIRIN 81 MG ENTERIC TABLET PO (08:26)
[2024-04-22] MEDS: lisinopriL 5 MG TABLET BY MOUTH (08:26)
== END 2024-04-22 10:37 | disposition home or self-care (01) ==
LOC: ANHSURGERY 08:56 → ANH2MED 14:49
PROVIDERS: Physician Assistant Surgical; PCP Family Medicine; Visit Provider Orthopaedic Surgery
PROC: (CPT 27130; principal; 2024-04-21 10:00)
DX: M16.11 Unilateral primary osteoarthritis, right hip (principal); E78.5 Hyperlipidemia, unspecified; I10 Essential (primary) hypertension; E11.9 Type 2 diabetes mellitus without complications
CPT/HCPCS: 27130; 36415; 73502; 80048; 82948; 85025; 86850; 86900; 86901; 97110; 97161; 97165; 99199; A9270; C1713; C1776; J0171; J0690; J1100; J1171; J1885; J2003; J2250; J2270; J2405; J2704; J2795; J3010; J7030; J7120

== ENCOUNTER 2024-08-02 08:24 | Outpatient (CLI) | payer OTHER, SELFPAY ==
--- NOTE | 2024-08-16 17:27 | P.SLEEP_ITS ---
Sleep Study - Home Unattended Date of Study: 08/02/24 Ordering Provider: Jackson Vallejo MD Interpreting Provider: Maritza Dennison MD Home Sleep Study Type: Watch PAT Height: 1.78 m Weight: 127.006 kg Body Mass Index: 40.1 Neck Circumference (inches): 16.5 [place]: 8 Reason for Sleep Study Poor quality sleep Sleep History Román Domnigo is a 59-year-old male who snores loudly at night and has interrupted sleep. He chokes and gasps at night. He does not have probable breathing if he is on his back and he does not have a morning headache but he does awaken with a dry mouth. He does not have nocturnal heartburn. He does not wake at night to urinate. He has hypertension, no other cardiac condition. He has a history of restless legs syndrome. He has difficulty getting to sleep and staying asleep. He does not clench or grind his teeth at night. He does not have muscle weakness with strong emotion, does not feel paralyzed on waking or falling asleep nor does he have vivid dreamlike scenes on waking or falling asleep. He does not have dreams during daytime naps. Normal bedtime is 9:00 p.m. falling asleep within 15 minutes spending 7 hours in bed 6-1/2 hours of sleep. On days off he is also goes to bed at 9, spends 8 hours in bed, 8 hours of sleep. He does not act out dreams. There is no sleep walking. Habits: Tobacco: No tobacco Caffeine: > 5 per day Alcohol: No Recreational substances: none PMFSH Past Medical History Medical History Hyperlipidemia Hypertension DISH (diffuse idiopathic skeletal hyperostosis) Vertigo Vision abnormalities Dizziness Headache Type 2 diabetes mellitus with hyperglycemia Surgical History Surgical History Status post total hip replacement, right (~04/21/24) Family History Family History Father Diabetes mellitus Grandparent Diabetes mellitus Mother Hypertension Family history of malignant neoplasm of brain Sibling Hypertension Other Heart disease Social History Social History Smoking status: Never smoker Alcohol intake: never Alcohol use details: 2/MONTH Substance use: never Substance use type: does not use Do You Feel Safe in your Home?: Yes Lack of Transportation: No Lack of Food: Never True Current Housing: I Have Housing Concerned About Future Housing: No Difficulty Paying Gas/Electric Bills: No Difficulty Paying for Meds: No Currently Unemployed: No Education: High School Diploma/GED Difficulty w/ Childcare or Family Care: No Living arrangements: with family Additional living arrangements comments: Gender identity (if verbalized by the patient): Male Spiritual care concerns: No Medications Home Medications ?Medication ?Instructions ?Recorded ?Confirmed ?Type aspirin 81 mg tablet,delayed 81 mg PO DAILY 03/04/19 07/13/24 History release (Adult Low Dose Aspirin) sildenafil 100 mg tablet (Viagra) 100 mg PO DAILY PRN Erectile 03/04/19 07/13/24 History Dysfunction multivitamin (Daily Multi-Vitamin 1 tablet PO DAILY 04/15/19 07/13/24 History tablet) blood sugar diagnostic #200 ea 10/04/20 07/13/24 Rx pen needle, diabetic 32 gauge x See Rx Instructions .Route 02/25/22 07/13/24 Rx 1/5 .COMPLEX #100 syringes pen needle, diabetic 32 gauge x #100 ea 03/03/22 07/13/24 Rx 5/32 (1st Tier Unifine Pentips) semaglutide 0.25 mg or 0.5 mg (2 0.5 mg (0.736 mL) subcut WEEKLY #9 09/03/23 07/13/24 Rx mg/3 mL) subcutaneous pen injector mL (Ozempic) metformin 1,000 mg tablet See Rx Instructions .Route 03/11/24 07/13/24 Rx .COMPLEX #180 tabs diclofenac sodium 1 % topical gel 2 g topical QID PRN pain 03/23/24 07/13/24 History (Arthritis Pain (diclofenac)) ibuprofen 200 mg tablet (Advil) 400 mg PO Q6H PRN pain 03/23/24 07/13/24 History empagliflozin 10 mg tablet See Rx Instructions .Route 06/10/24 07/13/24 Rx (Jardiance) .COMPLEX #90 tabs lisinopril 5 mg tablet See Rx Instructions .Route 06/13/24 07/13/24 Rx .COMPLEX #90 tabs simvastatin 10 mg tablet See Rx Instructions .Route 06/13/24 07/13/24 Rx .COMPLEX #90 tabs gabapentin 300 mg capsule See Rx Instructions .Route 06/23/24 07/13/24 Rx .COMPLEX #180 caps Sleep Procedure The sleep study was not completed using WatchPAT, due to arthritis pain. He put all equipment on and then took it off because he could not sleep with it due to arthritis pain. WatchPAT is a technically adequate device with seven channels: peripheral arterial tone, actigraphy, body position, snore, respiratory movement, pulse oximetry, sleep staging, and heart rate. Prior to using the device, the patient received verbal and written instructions for its application and was provided with the help desk phone number for additional telephonic instruction with 24- hour availability of qualified personnel to answer questions. Sleep Architecture The total recording time is 1 hrs, 49 min. The total sleep time is 0 hrs, 29 min. Sleep latency is 19 minutes. He had no REM. He had insufficient data to evaluate sleep architecture, respiratory data, oximetry and cardiac data. Respiratory Analysis NA Oximetry Data NA Snoring Profile NA Cardiac Profile NA Assessment and Plan Assessment and Plan (1) Poor sleep: Code(s): Z72.820 - Sleep deprivation Status: Acute Assessment and Plan: This home sleep test was incomplete as the patient could not tolerate the device due to arthritis pain. The patient was not billed for technical services. Data The data obtained during this sleep study is adequate for interpretation. Certification This sleep study has been reviewed by a board certified sleep medicine physician.
== END 2024-08-03 09:22 | disposition home or self-care (01) ==
LOC: ANHCSM 08:25
PROVIDERS: PCP Family Medicine; Visit Provider Family Medicine
DX: G47.30 Sleep apnea, unspecified (principal)
CPT/HCPCS: 95806